=== PATIENT | female | born 1990 | race Caucasian/White ===

== ENCOUNTER 2018-08-09 06:22 | Emergency (ER) | payer SELFPAY ==
[2018-08-09] MEDS ORDERED: Sulfamethox/Trimethoprim DS 800/160* TAB PO ONE (07:30)
[2018-08-09 07:48] VITALS: BP 116/69
--- NOTE | 2018-08-09 07:50 | ED ---
Skin Complaint - HPI Summary HPI Summary: Patient is a 28-year-old female presenting to the ED with 3 abscesses. 2 to the left antecubital fossa and one to the right side of the abdomen. One measures approximately 1.5 cm in diameter to the antecubital fossa and one measuring approximately 0.5 cm in diameter in the antecubital fossa. Other small abscess is approximately 1.7 cm in diameter to the right side of the abdomen. She states she believes these are bug bites, however does not recall getting a bug bite, tick bite. History of eczema, worse to her flexor surfaces of the arms which could be contributory. She states she has had abscesses in this area in the past, but they have resolved spontaneously. She denies any fevers, sweats, chills. Denies any streaking to the arm or the abdomen. Endorses a 5/10 pain scale, but remains able to flex and extend about the arm. She states she has not been sick otherwise denies any new topical products. - History of Current Complaint Chief Complaint: EDRashSkinAbscess Time Seen by Provider: 08/09/18 06:26 Stated Complaint: POS BUG BITES Hx Obtained From: Patient Onset/Duration: Started Hours Ago Skin Exposure Onset/Duration: Hours Ago Timing: Constant Onset Severity: Moderate Current Severity: Moderate Pain Intensity: 9 Pain Scale Used: 0-10 Numeric Character: Swelling, Pain, Redness, Painful Aggravating Symptom(s): Touch Alleviating Symptom(s): Nothing Associated Signs & Symptoms: Negative Related History: Insect Bite/Sting - possible - Allergy/Home Medications Allergies/Adverse Reactions: Allergies Allergy/AdvReac Type Severity Reaction Status Date / Time No Known Allergies Allergy Verified 08/09/18 06:28 PMH/Surg Hx/FS Hx/Imm Hx Previously Healthy: Yes - Immunization History Hx Pertussis Vaccination: No Immunizations Up to Date: Yes Infectious Disease History: No Infectious Disease History: Denies: Traveled Outside the [place] in Last 30 Days - Social History Occupation: Employed Full-time Lives: With Family Alcohol Use: Rare Hx Substance Use: No Substance Use Type: Reports: None Hx Tobacco Use: Yes Smoking Status (MU): Former Smoker Review of Systems Constitutional: Negative Negative: Fever, Chills, Fatigue, Skin Diaphoresis Negative: Palpitations, Chest Pain Negative: Shortness Of Breath, Cough Genitourinary: Negative Positive: no symptoms reported, see HPI Negative: Arthralgia, Myalgia Positive: Other Neurological: Negative All Other Systems Reviewed And Are Negative: Yes Physical Exam Triage Information Reviewed: Yes Vital Signs On Initial Exam: Initial Vitals Temp Pulse Resp BP Pulse Ox 98.8 F 95 16 112/65 98 08/09/18 06:25 18 06:25 18 06:25 08/09/18 06:25 08/09/18 06:25 Vital Signs Reviewed: Yes Appearance: Positive: Well-Appearing, Well-Nourished Skin: Positive: Warm, Skin Color Reflects Adequate Perfusion, Other - right sided abdomen abscess - 2 in the L antecubital fossa Neck: Positive: Supple, Nontender, No Lymphadenopathy Respiratory/Lung Sounds: Positive: Clear to Auscultation, Breath Sounds Present Cardiovascular: Positive: RRR, Pulses are Symmetrical in both Upper and Lower Extremities Musculoskeletal: Positive: Normal, Strength/ROM Intact Neurological: Positive: Speech Normal Psychiatric: Positive: Normal, Affect/Mood Appropriate - Loan Coma Scale Best Eye Response: 4 - Spontaneous Best Motor Response: 6 - Obeys Commands Best Verbal Response: 5 - Oriented Coma Scale Total: 15 Diagnostics - Vital Signs Vital Signs Temp Pulse Resp BP Pulse Ox 08/09/18 06:25 98.8 F 95 16 112/65 98 - Laboratory Lab Statement: Any lab studies that have been ordered have been reviewed, and results considered in the medical decision making process. Course/Dx - Course Course Of Treatment: During the course of treatment, the patient is evaluated for 3 abscesses, one to the abdomen in 2 to the left antecubital fossa. Bedside ultrasound reveals fluid with depth of approximately 0.7 cm to the antecubital fossa abscess, with no fluid to the right abdomen abscess with a left lateral abscess to the antecubital fossa respectively. Timeout obtained. I&D reveals small amount of purulent drainage. This was collected and sent to lab. She is also placed on Bactrim for MSSA and MRSA coverage. She understands to use warm compresses and return for any worsening or changing symptoms. As this has happened several times in the past, she is also referred to infectious disease for further evaluation. Labs obtained as patient is stable, with no fevers, sweats, chills and feels otherwise at her baseline. - Diagnoses Provider Diagnoses: Abscess Discharge - Sign-Out/Discharge Documenting (check all that apply): Patient Departure - Discharge Plan Condition: Stable Disposition: HOME Prescriptions: Sulfamethox/Trimethoprim DS* [Bactrim DS 800/160 TAB*] 1 tab PO BID #10 tab Patient Education Materials: Abscess (ED) Referrals: Audrey SYKES,Galdino Fatima [Medical Doctor] - No Primary Care Phys,[facility] [Primary Care Provider] - Additional Instructions: Bactrim twice daily x 5 days Warm compresses to the area Return for worsening symptoms Follow up with Dr Ramesh if you continue to develop abscesses Will call with a need for a change of antibiotics If you do not hear from us, this means you are on the correct antibiotic If you develop streaking up or down the arm - return immediately - Billing Disposition and Condition Condition: STABLE Disposition: Home
--- NOTE | 2018-08-10 06:09 | PN ---
Progress Note - Progress Note Date of Service: 08/09/18 Note: Pt. seen in ED 08/09 for abscess. She was placed on bactrim and wound culture obtained. Culture today is positive for MRSA which should be covered by bactrim. No change in treatment needed at this time.
== END 2018-08-09 07:47 | disposition home or self-care (01) ==
LOC: ED 06:22
DX: L02.211 Cutaneous abscess of abdominal wall (principal); Z87.891 Personal history of nicotine dependence
CPT/HCPCS: 87070; 87077; 87186; 87205; 87640; 87641; 99282; A9270-GY